=== PATIENT | male | born 1965 | race Caucasian/White ===

== ENCOUNTER → 2019-09-27 | Outpatient (CLI) | payer OTHER ==
[~2019-09-27] MED LIST: ATORVASTATIN CA40 M1 PO; DIABETA5 MG PO; GEMFIBROZIL600 MG PO; LEVOFLOXACIN500 MG PO; LISINOPRIL10 M1 PO; METFORMIN500 MG PO; NORCO 10-325 T1 EACH PO; PRILOSEC40 M1 PO; RELION NOV100 UNIT/1 SQ; SIMPONI100 MG/11 SQ
== END | disposition home or self-care (01) ==
LOC: COVID19 05:38
DX: R50.9 Fever, unspecified (principal); Z20.828 Contact with and (suspected) exposure to other viral communicable diseases

== ENCOUNTER → 2019-12-12 | Outpatient (CLI) | payer OTHER ==
[2019-12-12 13:22] LABS: BASO # 0.1 10*3/uL (0.0-0.1); BASO % 0.4 % (0.0-1.0); EOS # 0.3 10*3/uL (0.0-0.4); EOS % 2.1 % (1.0-4.0); HEMATOCRIT 46.2 % (42.0-52.0); LYMPH # 2.5 10*3/uL (1.3-4.4); LYMPH % 19.7 % (27.0-41.0); MEAN CELL VOLUME 90.8 fl (80.0-94.0); MEAN CORPUSCULAR HGB 29.7 pg (27.0-31.0); MEAN CORPUSCULAR HGB CONC 32.7 g/dl (33.0-37.0); MEAN PLATELET VOLUME 10.6 fl (9.6-12.3); MONO % 7.9 % (3.0-9.0); NEUT # 8.8 10*3/uL (2.3-7.9); NEUT % 69.5 % (47.0-73.0); PLATELET COUNT AUTOMATED 273 10*3/uL (130-400); RED BLOOD COUNT 5.09 10*6/uL (4.50-5.90); RED CELL DISTRI WIDTH 13.4 % (0-14.5); WHITE BLOOD COUNT 12.6 10*3/uL (4.8-10.8)
[2019-12-12 13:46] LABS: ALBUMIN 3.5 gm/dl (3.1-4.5); ALKALINE PHOSPHATASE 126 U/L (45-117); BUN 13 mg/dl (7-24); CHLORIDE 106 mmol/L (98-107); CHOLESTEROL 111 mg/dL (<200); CPK 156 U/L (39-308); CREATININE 0.83 mg/dL (0.70-1.30); GAMMA GLUTAMYL TRANSPEPTIDASE 30 U/L (15-85); HDL CHOLESTEROL 35 mg/dl (40-60); IRON 92 ug/dL (65-175); LDL CHOLESTEROL 11 mg/dL (9-159); POTASSIUM 3.4 mmol/L (3.5-5.1); SGOT/AST 22 IU/L (3-35); SGPT/ALT 48 U/L (12-78); SODIUM 140 mmol/L (136-145); TOTAL IRON BINDING CAPACITY 345 ug/dl (250-450); TRIGLYCERIDES 324 mg/dl (<150); VLDL CHOLESTEROL 65 mg/dL (6-40)
[2019-12-12 14:27] LABS: FERRITIN 50.9 ng/mL (22.0-322.0); VITAMIN D, 25-HYDROXY 26.1 ng/mL (30-100)
== END | disposition home or self-care (01) ==
LOC: LAB 13:01
PROVIDERS: ATTEND Family Medicine
DX: E55.9 Vitamin D deficiency, unspecified (principal); R79.89 Other specified abnormal findings of blood chemistry; R53.83 Other fatigue; E78.5 Hyperlipidemia, unspecified; R74.8 Abnormal levels of other serum enzymes

== ENCOUNTER → 2021-08-04 | Outpatient (CLI) | payer OTHER ==
[2021-08-04 09:39] LABS: BASO # 0.1 10*3/uL (0.0-0.1); BASO % 0.5 % (0.0-1.0); EOS # 0.3 10*3/uL (0.0-0.4); EOS % 2.1 % (1.0-4.0); HEMATOCRIT 45.7 % (42.0-52.0); LYMPH % 16.7 % (27.0-41.0); MEAN CELL VOLUME 97.9 fl (80.0-94.0); MEAN CORPUSCULAR HGB 31.3 pg (27.0-31.0); MEAN CORPUSCULAR HGB CONC 31.9 g/dl (33.0-37.0); MEAN PLATELET VOLUME 10.1 fl (9.6-12.3); MONO # 0.8 10*3/uL (0.1-1.0); NEUT # 8.7 10*3/uL (2.3-7.9); NEUT % 73.3 % (47.0-73.0); PLATELET COUNT AUTOMATED 191 10*3/uL (130-400); RED BLOOD COUNT 4.67 10*6/uL (4.50-5.90); RED CELL DISTRI WIDTH 13.8 % (0-14.5); RETICULOCYTE % 1.85 % (0.50-2.50); WHITE BLOOD COUNT 11.9 10*3/uL (4.8-10.8)
[2021-08-04 09:42] LABS: BILIRUBIN Negative (Negative); BLOOD Negative (Negative); CLARITY Clear (Clear); COLOR Yellow (Yellow); GLUCOSE Negative (Negative); KETONE Negative (Negative); LEUKO ESTERASE Negative (Negative); NITRITE Negative (Negative); SPECIFIC GRAVITY 1.015 (1.001-1.030); UROBILINOGEN 0.2 E.U./dl (0.0-1.0)
[2021-08-04 09:58] LABS: BUN 17 mg/dl (7-24); CHLORIDE 109 mmol/L (98-107); POTASSIUM 4.2 mmol/L (3.5-5.1); SODIUM 141 mmol/L (136-145)
[2021-08-04 10:10] LABS: ALKALINE PHOSPHATASE 125 U/L (45-117); CHOLESTEROL 103 mg/dL (<200); GAMMA GLUTAMYL TRANSPEPTIDASE 26 U/L (15-85); IRON 50 ug/dL (65-175); LDL CHOLESTEROL 27 mg/dL (9-159); SGOT/AST 18 IU/L (3-35); SGPT/ALT 39 U/L (12-78); THYROID STIM HORMONE (HS) 0.759 uIU/ml (0.358-4.75); TOTAL IRON BINDING CAPACITY 281 ug/dl (250-450); TOTAL PROTEIN 7.4 gm/dL (6.4-8.2); TRIGLYCERIDES 177 mg/dl (<150); URIC ACID 5.1 mg/dL (3.5-7.2)
[2021-08-04 10:47] LABS: FERRITIN 53.7 ng/mL (22.0-322.0)
[2021-08-04 11:19] LABS: BACTERIA TRACE
== END | disposition home or self-care (01) ==
LOC: LAB 09:09
PROVIDERS: ATTEND Family Medicine
DX: E78.5 Hyperlipidemia, unspecified (principal); R53.83 Other fatigue; R74.8 Abnormal levels of other serum enzymes; E55.9 Vitamin D deficiency, unspecified; R79.89 Other specified abnormal findings of blood chemistry

== ENCOUNTER → 2022-04-13 | Outpatient (CLI) | payer OTHER ==
[2022-04-13 09:54] LABS: BASO # 0.1 10*3/uL (0.0-0.1); BASO % 0.6 % (0.0-1.0); EOS # 0.3 10*3/uL (0.0-0.4); EOS % 3.3 % (1.0-4.0); HEMATOCRIT 45.4 % (42.0-52.0); LYMPH # 2.3 10*3/uL (1.3-4.4); LYMPH % 27.6 % (27.0-41.0); MEAN CORPUSCULAR HGB 30.5 pg (27.0-31.0); MEAN CORPUSCULAR HGB CONC 32.8 g/dl (33.0-37.0); MEAN PLATELET VOLUME 11.2 fl (9.6-12.3); MONO # 0.7 10*3/uL (0.1-1.0); MONO % 8.8 % (3.0-9.0); NEUT # 4.9 10*3/uL (2.3-7.9); NEUT % 59.5 % (47.0-73.0); PLATELET COUNT AUTOMATED 258 10*3/uL (130-400); RED BLOOD COUNT 4.88 10*6/uL (4.50-5.90); RED CELL DISTRI WIDTH 13.6 % (0-14.5); RETICULOCYTE % 1.53 % (0.50-2.50); WHITE BLOOD COUNT 8.3 10*3/uL (4.8-10.8)
[2022-04-13 09:55] LABS: BILIRUBIN Negative (Negative); BLOOD Negative (Negative); CLARITY Clear (Clear); COLOR Yellow (Yellow); GLUCOSE Negative (Negative); KETONE Negative (Negative); LEUKO ESTERASE Negative (Negative); NITRITE Negative (Negative); PH 5.5 (4.5-8.0); SPECIFIC GRAVITY <= 1.005 (1.001-1.030); UROBILINOGEN 0.2 E.U./dl (0.0-1.0)
[2022-04-13 10:12] LABS: ALKALINE PHOSPHATASE 107 U/L (46-116); BUN 13 mg/dl (9-23); CHLORIDE 108 mmol/L (98-107); CHOLESTEROL 104 mg/dL (<200); GAMMA GLUTAMYL TRANSPEPTIDASE 26 U/L (0-73); LDL CHOLESTEROL 36 mg/dL (9-159); POTASSIUM 4.1 mmol/L (3.4-5.1); SGPT/ALT 31 U/L (10-49); T3 UPTAKE 31.3 % (22.4-36.7); THYROID STIM HORMONE (HS) 0.536 uIU/ml (0.550-4.780); THYROXINE (T4) TOTAL 7.8 ug/dl (4.5-10.9); TOTAL PROTEIN 7.5 gm/dL (6.0-8.0); TRIGLYCERIDES 163 mg/dl (<150)
[2022-04-13 10:59] LABS: EPITHELIAL CELLS 0-2; RBC 0-2 rbc/hpf (0-2)
[2022-04-13 11:50] LABS: VITAMIN D, 25-HYDROXY 26.9 ng/mL (30-100)
== END | disposition home or self-care (01) ==
LOC: LAB 09:30
PROVIDERS: ATTEND Family Medicine
DX: E78.5 Hyperlipidemia, unspecified (principal); E55.9 Vitamin D deficiency, unspecified; R79.89 Other specified abnormal findings of blood chemistry; R53.83 Other fatigue; R74.8 Abnormal levels of other serum enzymes

== ENCOUNTER → 2022-11-30 | Outpatient (CLI) | payer OTHER ==
[2022-11-30 10:20] LABS: BASO # 0.1 10*3/uL (0.0-0.1); BASO % 0.5 % (0.0-1.0); EOS # 0.3 10*3/uL (0.0-0.4); EOS % 2.5 % (1.0-4.0); HEMATOCRIT 46.5 % (42.0-52.0); LYMPH # 2.3 10*3/uL (1.3-4.4); LYMPH % 23.5 % (27.0-41.0); MEAN CELL VOLUME 93.6 fl (80.0-94.0); MEAN CORPUSCULAR HGB 30.8 pg (27.0-31.0); MEAN CORPUSCULAR HGB CONC 32.9 g/dl (33.0-37.0); MEAN PLATELET VOLUME 10.5 fl (9.6-12.3); MONO # 0.9 10*3/uL (0.1-1.0); NEUT # 6.4 10*3/uL (2.3-7.9); PLATELET COUNT AUTOMATED 288 10*3/uL (130-400); RED BLOOD COUNT 4.97 10*6/uL (4.50-5.90); RED CELL DISTRI WIDTH 13.3 % (0-14.5); RETICULOCYTE % 1.58 % (0.50-2.50)
[2022-11-30 10:24] LABS: BILIRUBIN Negative (Negative); BLOOD Negative (Negative); CLARITY Clear (Clear); COLOR Yellow (Yellow); GLUCOSE Trace (Negative); KETONE Negative (Negative); LEUKO ESTERASE Negative (Negative); NITRITE Negative (Negative); UROBILINOGEN 0.2 E.U./dl (0.0-1.0)
[2022-11-30 10:38] LABS: BACTERIA TRACE; RBC 0-2 rbc/hpf (0-2); WBC 0-2 wbc/hpf (0-5)
[2022-11-30 10:39] LABS: EPITHELIAL CELLS 0-2
[2022-11-30 10:50] LABS: ALKALINE PHOSPHATASE 117 U/L (46-116); BUN 12 mg/dl (9-23); CHLORIDE 104 mmol/L (98-107); CHOLESTEROL 144 mg/dL (<200); GAMMA GLUTAMYL TRANSPEPTIDASE 32 U/L (0-73); LDL CHOLESTEROL 70 mg/dL (9-159); POTASSIUM 4.1 mmol/L (3.4-5.1); SGPT/ALT 30 U/L (5-49); T3 UPTAKE 26.9 % (22.4-36.7); THYROXINE (T4) TOTAL 7.7 ug/dl (4.5-10.9); TOTAL PROTEIN 7.9 gm/dL (6.0-8.0); TRIGLYCERIDES 166 mg/dl (<150)
[2022-11-30 10:51] LABS: VITAMIN D, 25-HYDROXY 34.8 ng/mL (30-100)
== END | disposition home or self-care (01) ==
LOC: LAB 09:33
PROVIDERS: ATTEND Family Medicine
DX: E78.5 Hyperlipidemia, unspecified (principal); R79.89 Other specified abnormal findings of blood chemistry; R53.83 Other fatigue; E55.9 Vitamin D deficiency, unspecified; E10.9 Type 1 diabetes mellitus without complications

== ENCOUNTER → 2023-01-04 | Outpatient (CLI) | payer OTHER ==
[2023-01-05 06:07] LABS: HBSAG Negative (Negative); HEP B CORE AB, IGM Negative (Negative); HEPATITIS C ANTIBODY Non Reactive (Non Reactive)
== END | disposition home or self-care (01) ==
LOC: LAB 09:27
PROVIDERS: ATTEND Family Medicine
DX: E78.5 Hyperlipidemia, unspecified (principal); R53.83 Other fatigue; R79.89 Other specified abnormal findings of blood chemistry; R00-R99 Symptoms, signs and abnormal clinical and laboratory findings, not elsewhere classified; R74.8 Abnormal levels of other serum enzymes

== ENCOUNTER → 2023-05-31 | Outpatient (CLI) | payer OTHER ==
[2023-05-31 10:51] LABS: BASO # 0.1 10*3/uL (0.0-0.1); BASO % 0.8 % (0.0-1.0); BILIRUBIN Negative (Negative); BLOOD Negative (Negative); CLARITY Clear (Clear); COLOR Yellow (Yellow); EOS # 0.2 10*3/uL (0.0-0.4); GLUCOSE Negative (Negative); HEMATOCRIT 47.3 % (42.0-52.0); KETONE Negative (Negative); LEUKO ESTERASE Negative (Negative); LYMPH % 19.9 % (27.0-41.0); MEAN CELL VOLUME 93.8 fl (80.0-94.0); MEAN CORPUSCULAR HGB 30.4 pg (27.0-31.0); MEAN CORPUSCULAR HGB CONC 32.3 g/dl (33.0-37.0); MEAN PLATELET VOLUME 10.9 fl (9.6-12.3); MONO # 0.9 10*3/uL (0.1-1.0); MONO % 8.4 % (3.0-9.0); NEUT % 68.2 % (47.0-73.0); NITRITE Negative (Negative); PH 5.5 (4.5-8.0); PLATELET COUNT AUTOMATED 278 10*3/uL (130-400); RED BLOOD COUNT 5.04 10*6/uL (4.50-5.90); RED CELL DISTRI WIDTH 13.7 % (0-14.5); RETICULOCYTE % 2.09 % (0.50-2.50); SPECIFIC GRAVITY 1.015 (1.001-1.030); UROBILINOGEN 0.2 E.U./dl (0.0-1.0); WHITE BLOOD COUNT 10.2 10*3/uL (4.8-10.8)
[2023-05-31 11:05] LABS: RBC 0-2 rbc/hpf (0-2); WBC 0-2 wbc/hpf (0-5)
[2023-05-31 11:31] LABS: ALKALINE PHOSPHATASE 103 U/L (46-116); BUN 15 mg/dl (9-23); CHLORIDE 105 mmol/L (98-107); CHOLESTEROL 135 mg/dL (<200); GAMMA GLUTAMYL TRANSPEPTIDASE 27 U/L (0-73); LDL CHOLESTEROL 46 mg/dL (9-159); POTASSIUM 3.7 mmol/L (3.4-5.1); SGPT/ALT 32 U/L (5-49); TOTAL PROTEIN 7.6 gm/dL (6.0-8.0); TRIGLYCERIDES 256 mg/dl (<150); VITAMIN D, 25-HYDROXY 30.2 ng/mL (30-100)
[2023-06-01 06:08] LABS: HBSAG Negative (Negative); HEP B CORE AB, IGM Negative (Negative); HEPATITIS C ANTIBODY Non Reactive (Non Reactive)
== END | disposition home or self-care (01) ==
LOC: LAB 10:29
PROVIDERS: ATTEND Family Medicine
DX: E55.9 Vitamin D deficiency, unspecified (principal); E78.5 Hyperlipidemia, unspecified; R79.89 Other specified abnormal findings of blood chemistry; R53.83 Other fatigue

== ENCOUNTER → 2023-12-06 | Outpatient (CLI) | payer OTHER | END | disposition home or self-care (01) | LOC: WOUNDCARE 01:54 | PROVIDERS: ATTEND Nurse Practitioner Family | DX: S91.104A Unspecified open wound of right lesser toe(s) without damage to nail, initial encounter (principal); S90.821A Blister (nonthermal), right foot, initial encounter; E78.00 Pure hypercholesterolemia, unspecified; E11.9 Type 2 diabetes mellitus without complications; F12.90 Cannabis use, unspecified, uncomplicated; Z96.641 Presence of right artificial hip joint; X58.XXXA Exposure to other specified factors, initial encounter; Y93.89 Activity, other specified; Y92.89 Other specified places as the place of occurrence of the external cause; Y99.8 Other external cause status ==

== ENCOUNTER 2024-01-05 18:02 | Inpatient (IN) | payer OTHER ==
[~2024-01-05] VITALS: Ht 175.3 cm; Wt 103.4 kg
[2024-01-05 18:30] VITALS: BP 157/79
[2024-01-05 19:09] LABS: HEMATOCRIT 44.8 % (42.0-52.0); MEAN CELL VOLUME 92.2 fl (80.0-94.0); MEAN CORPUSCULAR HGB 30.2 pg (27.0-31.0); MEAN CORPUSCULAR HGB CONC 32.8 g/dl (33.0-37.0); MEAN PLATELET VOLUME 10.4 fl (9.6-12.3); PLATELET COUNT AUTOMATED 274 10*3/uL (130-400); RED BLOOD COUNT 4.86 10*6/uL (4.50-5.90); RED CELL DISTRI WIDTH 13.2 % (0-14.5)
[2024-01-05 19:16] LABS: MANUAL DIFF REFLEX YES
[2024-01-05 19:26] LABS: BUN 20 mg/dl (9-23); CHLORIDE 104 mmol/L (98-107); POTASSIUM 3.5 mmol/L (3.4-5.1)
[2024-01-05 19:33] LABS: PLATELET SUFFICIENCY NORMAL (NORMAL); TOTAL CELLS COUNTED 100 #CELLS
[2024-01-05] MEDS ORDERED: Piperacillin Sodium/Tazobact 50 ML IV ONE (20:20)
[2024-01-05] MEDS ORDERED: Vancomycin Hydrochloride 250 ML IV ONE (20:20)
[2024-01-05] MEDS ORDERED: ALBUTEROL SULFATE HF (20:40)
[2024-01-05] MEDS ORDERED: LANTUS SOL100 UNIT/1 SC (20:40)
[2024-01-05] MEDS ORDERED: AMLODIPINE BESY10 MG PO (20:40)
[2024-01-05] MEDS ORDERED: SIMPONI100 MG/1 M SQ (20:41)
[2024-01-05] MEDS ORDERED: NOVOLIN 70100 UNIT/1 SQ (20:41)
[2024-01-05] MEDS ORDERED: SILDENAFIL CIT100 MG PO (20:42)
[2024-01-05] MEDS ORDERED: ACETAMINOPHEN 325 MG TAB PO PRN (21:25)
[2024-01-05] MEDS ORDERED: DEXTROSE 10 % IN WATER 250 ML IV PRN (21:25)
[2024-01-05] MEDS ORDERED: IOHEXOL 300 MG/ML 100 ML VIAL IV ONE (21:25)
[2024-01-05] MEDS ORDERED: MORPHINE Sulfate 2 MG/ML SYR IV PRN (21:25)
[2024-01-05] MEDS ORDERED: Ondansetron Hydrochloride 4 MG/2 ML VIAL IV PRN (21:25)
[2024-01-05] MEDS ORDERED: SODIUM CHLORIDE 0.9% 1,000 ML IV SCH (21:35)
[2024-01-05] MEDS ORDERED: INSULIN LISPRO 1 UNIT/0.01 ML SQ SCH (22:00)
[2024-01-05 22:11] VITALS: BP 149/91
[2024-01-05 22:35] VITALS: BP 140/84
[2024-01-06] VITALS: BP 144/82
[2024-01-06] MEDS ORDERED: Melatonin 5 MG TABLET PO PRN (02:35)
[2024-01-06] MEDS ORDERED: Piperacillin Sodium/Tazobact 50 ML IV SCH (04:00)
[2024-01-06 05:40] LABS: ALKALINE PHOSPHATASE 106 U/L (46-116); BUN 13 mg/dl (9-23); CHLORIDE 103 mmol/L (98-107); CHOLESTEROL 114 mg/dL (<200); LDL CHOLESTEROL 52 mg/dL (9-159); POTASSIUM 3.4 mmol/L (3.4-5.1); SGPT/ALT 23 U/L (5-49); TOTAL PROTEIN 7.4 gm/dL (6.0-8.0); TRIGLYCERIDES 104 mg/dl (<150); URIC ACID 4.1 mg/dL (3.7-9.2)
[2024-01-06] MEDS ORDERED: VANCOMYCIN/WATER FOR INJ (PEG) 350 ML IV SCH (06:00)
[2024-01-06 06:11] LABS: HEMATOCRIT 42.3 % (42.0-52.0); MEAN PLATELET VOLUME 11.2 fl (9.6-12.3); PLATELET COUNT AUTOMATED 270 10*3/uL (130-400); RED BLOOD COUNT 4.65 10*6/uL (4.50-5.90); RED CELL DISTRI WIDTH 13.3 % (0-14.5); WHITE BLOOD COUNT 19.1 10*3/uL (4.8-10.8)
[2024-01-06 06:23] LABS: MANUAL DIFF REFLEX YES
[2024-01-06 06:52] LABS: BURR CELLS FEW; POLYCHROMASIA SLIGHT; TOTAL CELLS COUNTED 100 #CELLS
[2024-01-06 06:53] LABS: PLATELET SUFFICIENCY NORMAL (NORMAL)
[2024-01-06 07:21] LABS: VITAMIN D, 25-HYDROXY 29.7 ng/mL (30-100)
[2024-01-06 08:00] VITALS: BP 140/69
[2024-01-06] MEDS ORDERED: Insulin Glargine, Recombinan 1 UNIT/0.01 ML SC SCH ×2 (10:00→17:00)
[2024-01-06] MEDS ORDERED: Enoxaparin Sodium 40 MG/0.4 ML SYR SC SCH (10:00)
[2024-01-06] MEDS ORDERED: ATORVASTATIN CALCIUM 40 MG TABLET PO SCH (10:00)
[2024-01-06] MEDS ORDERED: amLODIPine besylate 10 MG TAB PO SCH (10:00)
[2024-01-06 12:00] VITALS: BP 157/64
[2024-01-06 16:00] VITALS: BP 160/79
[2024-01-06 20:00] VITALS: BP 158/76
[2024-01-07] VITALS (10 sets, daily range): BP systolic 146–180; BP diastolic 73–85
[2024-01-07 06:10] LABS: ALKALINE PHOSPHATASE 109 U/L (46-116); BUN 10 mg/dl (9-23); CHLORIDE 100 mmol/L (98-107); POTASSIUM 3.3 mmol/L (3.4-5.1); SGPT/ALT 22 U/L (5-49); TOTAL PROTEIN 7.7 gm/dL (6.0-8.0)
[2024-01-07 06:21] LABS: HEMATOCRIT 43.3 % (42.0-52.0); MEAN CELL VOLUME 88.9 fl (80.0-94.0); MEAN CORPUSCULAR HGB 30.2 pg (27.0-31.0); MEAN CORPUSCULAR HGB CONC 33.9 g/dl (33.0-37.0); MEAN PLATELET VOLUME 10.8 fl (9.6-12.3); PLATELET COUNT AUTOMATED 274 10*3/uL (130-400); RED BLOOD COUNT 4.87 10*6/uL (4.50-5.90)
[2024-01-07 06:57] LABS: MANUAL DIFF REFLEX YES
[2024-01-07] MEDS ORDERED: POTASSIUM CHLORIDE 10 MEQ TAB PO ONE (07:35)
[2024-01-07 07:47] LABS: ATYPICAL LYMPHS 1 % (0-0); TOTAL CELLS COUNTED 100 #CELLS
[2024-01-07 07:48] LABS: PLATELET SUFFICIENCY NORMAL (NORMAL)
[2024-01-07] MEDS ORDERED: Lactated Ringer's Solution 1,000 ML IV ONE (08:59)
[2024-01-07] MEDS ORDERED: ACETAMINOPHEN 100 ML IV ONE (09:05)
[2024-01-07] MEDS ORDERED: Vancomycin Hydrochloride 1,000 MG VIAL ONE (09:11)
[2024-01-07] MEDS ORDERED: BUPIVACAINE 0.5% 0 ML IV ONE (09:12)
[2024-01-07] MEDS ORDERED: MORPHINE Sulfate 2 MG/ML SYR IV PRN (09:55)
[2024-01-07] MEDS ORDERED: VANCOMYCIN/WATER FOR INJ (PEG) 300 ML IV SCH (14:00)
[2024-01-07] MEDS ORDERED: Doxycycline Hyclate 100 MG CAP PO SCH (18:00)
[2024-01-08] VITALS: BP 158/78
[2024-01-08 06:06] LABS: BUN 12 mg/dl (9-23); CHLORIDE 102 mmol/L (98-107); POTASSIUM 3.5 mmol/L (3.4-5.1)
[2024-01-08 06:33] LABS: BASO # 0.1 10*3/uL (0.0-0.1); BASO % 0.4 % (0.0-1.0); EOS # 0.2 10*3/uL (0.0-0.4); EOS % 1.8 % (1.0-4.0); MEAN CORPUSCULAR HGB 30.1 pg (27.0-31.0); MEAN CORPUSCULAR HGB CONC 33.4 g/dl (33.0-37.0); MEAN PLATELET VOLUME 10.4 fl (9.6-12.3); MONO # 1.4 10*3/uL (0.1-1.0); MONO % 10.7 % (3.0-9.0); PLATELET COUNT AUTOMATED 296 10*3/uL (130-400); RED BLOOD COUNT 4.89 10*6/uL (4.50-5.90); RED CELL DISTRI WIDTH 12.9 % (0-14.5)
[2024-01-08 08:00] VITALS: BP 149/78
[2024-01-08] MEDS ORDERED: RIVAROXABAN 10 MG TAB PO SCH (10:00)
[2024-01-08 12:00] VITALS: BP 153/66
[2024-01-08] MEDS ORDERED: Acetaminophen/Hydrocodone 5 MG/325 MG TABLET PO PRN (12:00)
[2024-01-08 16:00] VITALS: BP 162/81
[2024-01-08 20:00] VITALS: BP 154/74
[2024-01-09] VITALS: BP 132/68
[2024-01-09 06:36] LABS: BUN 11 mg/dl (9-23); CHLORIDE 104 mmol/L (98-107); POTASSIUM 3.8 mmol/L (3.4-5.1)
[2024-01-09 07:32] LABS: BASO # 0.1 10*3/uL (0.0-0.1); BASO % 0.8 % (0.0-1.0); EOS # 0.4 10*3/uL (0.0-0.4); EOS % 4.4 % (1.0-4.0); HEMATOCRIT 41.6 % (42.0-52.0); MEAN CORPUSCULAR HGB 30.4 pg (27.0-31.0); MEAN CORPUSCULAR HGB CONC 33.4 g/dl (33.0-37.0); MEAN PLATELET VOLUME 10.6 fl (9.6-12.3); MONO # 0.9 10*3/uL (0.1-1.0); MONO % 9.1 % (3.0-9.0); NEUT # 5.6 10*3/uL (2.3-7.9); NEUT % 55.4 % (47.0-73.0); PLATELET COUNT AUTOMATED 295 10*3/uL (130-400); RED BLOOD COUNT 4.57 10*6/uL (4.50-5.90); RED CELL DISTRI WIDTH 13.2 % (0-14.5); WHITE BLOOD COUNT 10.1 10*3/uL (4.8-10.8)
[2024-01-09 08:00] VITALS: BP 175/81
[2024-01-09] MEDS ORDERED: Cholecalciferol 2,000 UNIT TABLET (50 MCG) PO SCH (10:00)
[2024-01-09 12:00] VITALS: BP 167/71
[2024-01-09 16:00] VITALS: BP 163/74
[2024-01-09 20:00] VITALS: BP 120/79
[2024-01-09] MEDS ORDERED: DALVANCE500 MG IV (20:57)
[2024-01-10] VITALS: BP 125/61
[2024-01-10 05:27] LABS: BUN 11 mg/dl (9-23); CHLORIDE 102 mmol/L (98-107); POTASSIUM 3.7 mmol/L (3.4-5.1)
[2024-01-10 06:12] LABS: HEMATOCRIT 45.8 % (42.0-52.0); MEAN CELL VOLUME 91.4 fl (80.0-94.0); MEAN CORPUSCULAR HGB 30.1 pg (27.0-31.0); MEAN PLATELET VOLUME 10.4 fl (9.6-12.3); PLATELET COUNT AUTOMATED 352 10*3/uL (130-400); RED BLOOD COUNT 5.01 10*6/uL (4.50-5.90); RED CELL DISTRI WIDTH 13.2 % (0-14.5); WHITE BLOOD COUNT 12.5 10*3/uL (4.8-10.8)
[2024-01-10 06:21] LABS: MANUAL DIFF REFLEX YES
[2024-01-10 07:17] LABS: TOTAL CELLS COUNTED 100 #CELLS
[2024-01-10 07:18] LABS: PLATELET SUFFICIENCY NORMAL (NORMAL)
[2024-01-10] MEDS ORDERED: DALVANCE500 MG IV (07:49)
[2024-01-10 08:00] VITALS: BP 154/76
[2024-01-10 11:55] VITALS: BP 160/81
[2024-01-10] MEDS ORDERED: XARELTO10 MG PO (13:02)
[2024-01-10] MEDS ORDERED: HYDROCODONE-AC1 EAC1 PO (13:02)
[2024-01-10] MEDS ORDERED: Lidocaine Hydrochloride 2% 5 ML SDV IV ONE (14:15)
[2024-01-10] MEDS ORDERED: PROPOFOL 200 MG/20 ML VIAL IV ONE (14:15)
[2024-01-10] MEDS ORDERED: Ketamine Hydrochloride 500 MG/10 ML VIAL IV ONE (14:15)
== END 2024-01-10 15:15 | disposition home health service (06) | DRG 710 ==
LOC: ED 18:02 → EDHOLD 20:47 → 4E 20:47
PROVIDERS: Physician Assistant Medical; Student in an Organized Health Care Education/Training Program; ADMIT Family Medicine; ATTEND Family Medicine
PROC: 0QBQ0ZX Excision of Right Toe Phalanx, Open Approach, Diagnostic (ICD-10-PCS; principal; 2024-01-07)
PROC: 0HDRXZZ Extraction of Toe Nail, External Approach (ICD-10-PCS; 2024-01-07)
PROC: 0JBQ0ZZ Excision of Right Foot Subcutaneous Tissue and Fascia, Open Approach (ICD-10-PCS; 2024-01-07)
PROC: 3E0T3BZ Introduction of Anesthetic Agent into Peripheral Nerves and Plexi, Percutaneous Approach (ICD-10-PCS; 2024-01-07)
PROC: 0YQ Anatomical Regions, Lower Extremities, Repair (ICD-10-PCS; 2024-01-07)
DX: A41.9 Sepsis, unspecified organism (principal); L89.892 Pressure ulcer of other site, stage 2; M86.171 Other acute osteomyelitis, right ankle and foot; L02.611 Cutaneous abscess of right foot; K50.90 Crohn's disease, unspecified, without complications; E11.69 Type 2 diabetes mellitus with other specified complication; K44.9 Diaphragmatic hernia without obstruction or gangrene; M45.2 Ankylosing spondylitis of cervical region; E87.1 Hypo-osmolality and hyponatremia; E11.42 Type 2 diabetes mellitus with diabetic polyneuropathy; L03.115 Cellulitis of right lower limb; R14.0 Abdominal distension (gaseous); E11.65 Type 2 diabetes mellitus with hyperglycemia; L60.0 Ingrowing nail; Z88.8 Allergy status to other drugs, medicaments and biological substances; Z79.1 Long term (current) use of non-steroidal anti-inflammatories (NSAID); Z79.899 Other long term (current) drug therapy; Z79.4 Long term (current) use of insulin; Z80.42 Family history of malignant neoplasm of prostate; Z79.84 Long term (current) use of oral hypoglycemic drugs

== ENCOUNTER → 2024-01-17 | Outpatient (CLI) | payer OTHER ==
[~2024-01-17] MED LIST changes: +ALBUTEROL SULFATE HF; +AMLODIPINE BESY10 MG PO; +DALVANCE500 MG IV; +HYDROCODONE-AC1 EAC1 PO; +LANTUS SOL100 UNIT/1 SC; +NOVOLIN 70100 UNIT/1 SQ; +SILDENAFIL CIT100 MG PO; +SIMPONI100 MG/1 M SQ; +XARELTO10 MG PO
[2024-01-17 13:42] LABS: BASO # 0.1 10*3/uL (0.0-0.1); BASO % 0.6 % (0.0-1.0); EOS # 0.1 10*3/uL (0.0-0.4); EOS % 0.8 % (1.0-4.0); HEMATOCRIT 45.9 % (42.0-52.0); MEAN CORPUSCULAR HGB 29.9 pg (27.0-31.0); MEAN CORPUSCULAR HGB CONC 32.5 g/dl (33.0-37.0); MEAN PLATELET VOLUME 10.2 fl (9.6-12.3); MONO % 7.5 % (3.0-9.0); NEUT # 9.3 10*3/uL (2.3-7.9); NEUT % 72.9 % (47.0-73.0); PLATELET COUNT AUTOMATED 319 10*3/uL (130-400); RED BLOOD COUNT 4.99 10*6/uL (4.50-5.90); RED CELL DISTRI WIDTH 13.3 % (0-14.5); WHITE BLOOD COUNT 12.8 10*3/uL (4.8-10.8)
[2024-01-17 14:01] LABS: ALKALINE PHOSPHATASE 114 U/L (46-116); BUN 10 mg/dl (9-23); CHLORIDE 101 mmol/L (98-107); POTASSIUM 3.8 mmol/L (3.4-5.1); SGPT/ALT 33 U/L (5-49); TOTAL PROTEIN 7.9 gm/dL (6.0-8.0)
== END | disposition home or self-care (01) ==
LOC: LAB 13:22
PROVIDERS: ATTEND Registered Nurse
DX: M86.9 Osteomyelitis, unspecified (principal)

== ENCOUNTER → 2024-03-06 | Outpatient (CLI) | payer OTHER ==
[2024-03-06 10:16] LABS: BASO % 0.4 % (0.0-1.0); EOS # 0.3 10*3/uL (0.0-0.4); EOS % 3.1 % (1.0-4.0); HEMATOCRIT 43.9 % (42.0-52.0); MEAN CELL VOLUME 91.1 fl (80.0-94.0); MEAN CORPUSCULAR HGB 30.3 pg (27.0-31.0); MEAN CORPUSCULAR HGB CONC 33.3 g/dl (33.0-37.0); MEAN PLATELET VOLUME 10.9 fl (9.6-12.3); MONO # 0.8 10*3/uL (0.1-1.0); MONO % 8.3 % (3.0-9.0); PLATELET COUNT AUTOMATED 267 10*3/uL (130-400); RED BLOOD COUNT 4.82 10*6/uL (4.50-5.90); RED CELL DISTRI WIDTH 13.4 % (0-14.5); WHITE BLOOD COUNT 9.4 10*3/uL (4.8-10.8)
[2024-03-06 10:22] LABS: BILIRUBIN Negative (Negative); BLOOD Negative (Negative); CLARITY Clear (Clear); COLOR Yellow (Yellow); GLUCOSE Negative (Negative); KETONE Negative (Negative); LEUKO ESTERASE Negative (Negative); NITRITE Negative (Negative); PH 5.5 (4.5-8.0); SPECIFIC GRAVITY 1.015 (1.001-1.030); UROBILINOGEN 0.2 E.U./dl (0.0-1.0)
[2024-03-06 10:47] LABS: WBC 0-2 wbc/hpf (0-5)
[2024-03-06 11:15] LABS: VITAMIN D, 25-HYDROXY 31.4 ng/mL (30-100)
[2024-03-06 11:17] LABS: ALKALINE PHOSPHATASE 119 U/L (46-116); BUN 14 mg/dl (9-23); CHLORIDE 106 mmol/L (98-107); CHOLESTEROL 131 mg/dL (<200); GAMMA GLUTAMYL TRANSPEPTIDASE 28 U/L (0-73); LDL CHOLESTEROL 66 mg/dL (9-159); POTASSIUM 3.9 mmol/L (3.4-5.1); SGPT/ALT 24 U/L (5-49); T3 UPTAKE 36.6 % (22.4-36.7); THYROXINE (T4) TOTAL 6.4 ug/dl (4.5-10.9); TOTAL PROTEIN 7.5 gm/dL (6.0-8.0); TRIGLYCERIDES 138 mg/dl (<150)
== END | disposition home or self-care (01) ==
LOC: LAB 09:41
PROVIDERS: ATTEND Family Medicine
DX: R53.83 Other fatigue (principal); R79.89 Other specified abnormal findings of blood chemistry; E78.5 Hyperlipidemia, unspecified; E55.9 Vitamin D deficiency, unspecified

== ENCOUNTER → 2025-01-10 | Outpatient (CLI) | payer OTHER ==
[2025-01-10 09:42] LABS: BASO # 0.0 10*3/uL (0.0-0.1); BASO % 0.4 % (0.0-1.0); EOS # 0.2 10*3/uL (0.0-0.4); EOS % 2.6 % (1.0-4.0); MEAN CELL VOLUME 91.4 fl (80.0-94.0); MEAN CORPUSCULAR HGB 30.3 pg (27.0-31.0); MEAN PLATELET VOLUME 11.2 fl (9.6-12.3); MONO # 0.7 10*3/uL (0.1-1.0); MONO % 7.1 % (3.0-9.0); NEUT # 6.5 10*3/uL (2.3-7.9); NEUT % 69.0 % (47.0-73.0); NUCLEATED RED BLOOD CELL 0.0 % (0.0-0.0); NUCLEATED RED BLOOD CELL 0.0 10*3/uL (0.0-0.0); PLATELET COUNT AUTOMATED 280 10*3/uL (130-400); RED CELL DISTRI WIDTH 13.5 % (0-14.5); RETICULOCYTE % 1.65 % (0.50-2.50)
[2025-01-10 09:44] LABS: BILIRUBIN Negative (Negative); BLOOD Negative (Negative); CLARITY Clear (Clear); COLOR Yellow (Yellow); KETONE Negative (Negative); LEUKO ESTERASE Negative (Negative); NITRITE Negative (Negative); PH 5.5 (4.5-8.0); SPECIFIC GRAVITY 1.015 (1.001-1.030); UROBILINOGEN 0.2 E.U./dl (0.0-1.0)
[2025-01-10 10:13] LABS: BUN 16 mg/dl (9-23); GAMMA GLUTAMYL TRANSFERASE 19 U/L (0-73); LDL CHOLESTEROL 92 mg/dL (9-159); SGPT/ALT 17 U/L (5-49)
[2025-01-10 10:29] LABS: BACTERIA TRACE; RBC 0-2 rbc/hpf (0-2)
[2025-01-10 10:35] LABS: VITAMIN D, 25-HYDROXY 43.4 ng/mL (30-100)
== END | disposition home or self-care (01) ==
LOC: LAB 09:18
PROVIDERS: ATTEND Family Medicine
DX: R06.02 Shortness of breath (principal); R79.89 Other specified abnormal findings of blood chemistry; E78.5 Hyperlipidemia, unspecified; E55.9 Vitamin D deficiency, unspecified; R53.83 Other fatigue